=== PATIENT | female | born 1990 | race Caucasian/White ===

== ENCOUNTER 2024-10-07 19:37 | Emergency (ER) | payer MEDICARE, SELFPAY ==
[2024-10-07 19:42] VITALS: BP 134/96
[2024-10-07 20:21] LABS: COVID-19 Antigen Negative (Negative)
[2024-10-07 20:33] VITALS: BMI 24.4
--- NOTE | 2024-10-07 20:58 | ED.GENMED ---
History of Present Illness
General
Chief Complaint: Cold/Flu/URI Symptoms
Source: patient
Exam Limitations: none
Time Seen by Provider: 10/07/24 20:38
History of Present Illness
History of Present Illness:
This is a 34 year old female that comes in with c/o cough. State that she has had a cold and it went into her chest. States that she has been using Mucinex and night-Quil. States that it is not helping. States that she is just coughing and has some
SOB going up the steps. States that she also felt dizzy going up the steps. Denies any fever, chills, chest pain, abd pain, nausea, vomiting, diarrhea, headache, dizziness, urinary burning.
Past History
Past History
ED Past Medical History: Asthma; Negative HTN, Hypercholesterolemia or NIDDM
ED Past Surgical History: Orthopedic (Right foot tumor removed, Stress fracture repair, Left knee surgery)
Social History
Tobacco: Vaping
Alcohol: Occasional
Personal: Single
Living: with family
Review of Systems
Review of Systems
All Other Systems: ROS reviewed and negative except as documented in HPI and ROS
Constitutional: Reports no symptoms; Denies fever or chills
EENT: Reports no symptoms
Respiratory: Reports cough and trouble breathing
Cardiac: Reports no symptoms; Denies chest pain
ABD/GI: Reports no symptoms; Denies abdominal pain, nausea, vomiting or diarrhea
: Reports no symptoms; Denies dysuria, frequency or urgency
Musculoskeletal: Reports no symptoms
Skin: Reports no symptoms
Neurological: Reports dizzy (when going up the steps); Denies headache
Psychiatric: Reports no symptoms
Phy Exam
General Physical Exam
General Presentation: no apparent distress
General age: appears stated age
General Skin: warm and dry
General Habitus: normal
General Mental: alert
General Hydration: appears well hydrated
ENT Exam
ENT Exam: TM's normal, pharynx normal and neck supple
Eye Exam
Eye Exam: EOMI
Cardiovascular Exam
Cardiovascular Exam: regular rate/rhythm, no edema, no murmur and normal peripheral pulses
Pulmonary Exam
Pulmonary Exam: lungs clear, no respiratory distress, no rales, chest non tender, no crackles, no rhonchi, no wheezing and other (Dry cough noted)
Gastrointestinal Exam
Gastrointestinal Exam: normal bowel sounds, non tender, soft, no organomegaly, no pulsatile mass and non distended
Musculoskeletal Exam
Musculoskeletal Exam: full ROM and no edema
Skin Exam
Skin Exam: normal color, warm/dry, no rash and no petechia
Psychiatric Exam
Psychiatric Exam: normal mood/affect
Course
Orders/Labs/Results
Orders:
Orders
10/07/24 19:49
COVID-19 Antigen Urgent
Source: Nasal Swab
Influenza A+B Rapid Molecular Urgent
CANDIDO Source: Nasal Swab
Specimen Description:
10/07/24 20:35
CR Chest - 2 Views Urgent
Comment:
Reason For Exam: respiratory distress
10/07/24 20:58
Prednisone [Deltasone] 40 mg PO NOW STA
Negative for COVID and Influenza
Vital Signs
Initial and Last Documented VS:
Initial Vital Signs
Temp Pulse Resp BP Pulse Ox
98.2 F 108 16 134/96 99
10/07/24 19:42 10/07/24 19:42 10/07/24 19:42 10/07/24 19:42 10/07/24 19:42
Last Documented Vital Signs
Temp Pulse Resp BP Pulse Ox
98.2 F 108 16 134/96 99
10/07/24 19:42 10/07/24 19:42 10/07/24 19:42 10/07/24 19:42 10/07/24 19:42
MDM/Problems Addressed
Differential Diagnosis Includes:
Cough, PNA
MDM/Problems Addressed:
This is a 34 year old female that comes in with c/o cough. States that she had a cold and it went to her chest. States that she is coughing and feels SOB when going up the steps.
Will check for COVID, Influenza and get chest X-ray. Will start patient on steroids to help decrease the inflammation and cough.
Back into see patient. Explained that her X-ray is negative for Pneumonia. Will discharge patient home.
Chronic conditions affecting care: Asthma
Acute Exacerbation and/or Progression of Chronic Illness: Asthma
*Radiology
Radiology exam reviewed: radiology read reviewed (Chest-No focal parenchymal opacification to suggest Pneumonia)
*Pulse Oximetry
Patient hypoxic: no
*EKG
Interpreted by ED Provider?: NA
Rate: EKG- N/A
*Revenue Field Agent Interpretation
Rate: Revenue Field Agent- N/A
*Critical Care Note
Total Time (30-74mins, 75-104mins- exclusive of procedures): Not Applicable
ED Attending Note
-
Portions of this chart may have been created with voice recognition software.� Occasional wrong word or��sound alike� substitutions may have occurred due to the inherent limitations of voice recognition software.
Discharge Plan
Departure
Patient Disposition: Home (Routine Discharge)
Date of Disposition: 10/07/24
Time of Disposition: 21:53
Patient with high blood pressure during this ER visit?: Yes
Condition: Good
Covid-19: Negative COVID-19
Discharge Problem:
Cough in adult
Instructions: Cough in adults - ED discharge instructions, BLOOD PRESSURE
Prescriptions:
New
prednisone 20 mg tablet
40 mg PO DAILY Qty: 8 0RF
Activity Restrictions/Additional Instructions:
As discussed, your Chest x-ray is negative for any Pneumonia. You have been given Steroids here and a prescription has been sent to your pharmacy. PleasE take as directed and follow up with the family doctor for recheck. Please increase your water
intake to 8-8oz glasses daily. IF YOU HAVE INCREASED SHORTNESS OF BREATH, OR YOU HAVE ANY OTHER CONCERNS PLEASE RETURN TO THE EMERGENCY ROOM.
Interventions
Interventions:
*Risk Screen - Suicide Last Done: 10/07/24 20:34
*General Assessment Last Done: 10/07/24 19:42
*Neglect/Abuse Screening Last Done: 10/07/24 19:42
ED- Fall Risk Assessment Last Done: 10/07/24 20:34
*ED COVID-19 Vaccine History Last Done: 10/07/24 19:42
ED- Pulmonary Assessment Last Done: 10/07/24 20:33
Discharge Date and Time
Print Language: POLISH
[2024-10-07] MEDS: DELTASONE 40 MG PO (21:13)
== END 2024-10-07 22:12 | disposition home or self-care (01) ==
LOC: EMR 19:37
PROVIDERS: Emergency Medicine; EMERGENCY PHYSICIAN Student in an Organized Health Care Education/Training Program
DX: R05.9 Cough, unspecified (principal); J45.909 Unspecified asthma, uncomplicated; F17.290 Nicotine dependence, other tobacco product, uncomplicated
CPT/HCPCS: 99283; 71046; 87502; 87811